=== PATIENT | female | born 1990 | race Caucasian/White ===

== ENCOUNTER 2019-03-01 08:01 | Emergency (ER) | payer BC ==
[~2019-03-01] VITALS: Ht 162.6 cm; Wt 104.5 kg
[~2019-03-01 08:01] MED LIST: ALLEGRA 180MG180 MG PO; FEOSOL65 MG PO; GLUMETZA500 MG; ISOPTIN PO; MULTIVITAMIN FO1 CAP PO; NORVASC 5MG5 MG/TAB PO; SINEQUAN 1010 MG/CAP PO
[2019-03-01 08:11] VITALS: TEMP 98.4
[2019-03-01] MEDS ORDERED: WELLBUTRIN SR100 M1 PO (08:19)
[2019-03-01] MEDS ORDERED: ALDACTONE50 MG PO (08:20)
[2019-03-01] MEDS ORDERED: ZOLOFT 100MG100 MG PO (08:20)
[2019-03-01] MEDS ORDERED: INDERAL40 MG PO (08:21)
[2019-03-01 09:35] VITALS: BP 155/100; PULSE 73
== END 2019-03-01 09:35 | disposition home or self-care (01) ==
LOC: COL.ER 08:01
DX: S09.90XA Unspecified injury of head, initial encounter (principal); S01.03XA Puncture wound without foreign body of scalp, initial encounter; R40.2412 Glasgow coma scale score 13-15, at arrival to emergency department; F41.9 Anxiety disorder, unspecified; G43.909 Migraine, unspecified, not intractable, without status migrainosus; F32.9 Major depressive disorder, single episode, unspecified; Z23 Encounter for immunization; W19.XXXA Unspecified fall, initial encounter; W22.8XXA Striking against or struck by other objects, initial encounter; Y92.009 Unspecified place in unspecified non-institutional (private) residence as the place of occurrence of the external cause